=== PATIENT | female | born 1995 | race Caucasian/White ===

== ENCOUNTER 2016-04-24 22:04 | Inpatient (IN) | payer MEDICAID ==
[~2016-04-24] VITALS: Ht 157.5 cm; Wt 63.2 kg
[2016-04-24] MEDS ORDERED: FAMOTIDINE 20 MG/2 ML IVP ONE (22:30)
[2016-04-24] MEDS ORDERED: SODIUM CHLORIDE 0.9% 1,000ML IVBOLUS ONE (22:30)
[2016-04-24] MEDS ORDERED: SODIUM CHLORIDE FLUSH 10ML SYR IVF ONE (22:30)
[2016-04-24] MEDS ORDERED: ONDANSETRON 2MG/ML, 2ML IVPush ONE (22:30)
[2016-04-24] MEDS ORDERED: ONDANSETRON 2MG/ML, 2ML ONE (22:38)
[2016-04-24] MEDS ORDERED: FAMOTIDINE 20 MG/2 ML ONE (22:38)
[2016-04-24] MEDS ORDERED: PROM12.553 RC (23:06)
[2016-04-24] MEDS ORDERED: ONDA4TAB13 SL (23:06)
[2016-04-25] MEDS ORDERED: ONDANSETRON 2MG/ML, 2ML ONE (00:14)
[2016-04-25] MEDS ORDERED: ONDANSETRON 2MG/ML, 2ML IVPush ONE (00:30)
[2016-04-25] MEDS ORDERED: SODIUM CHLORIDE 0.9% 1,000ML IVBOLUS ONE (00:30)
[2016-04-25] MEDS ORDERED: PROMETHAZINE 25 MG/ML, 1ML ONE (01:40)
[2016-04-25] MEDS ORDERED: PROMETHAZINE 25 MG/ML, 1ML IM ONE (02:00)
[2016-04-25 03:57] LABS: HEMOGLOBIN 11.6 g/dL (11.7-16.4)
[2016-04-25 04:15] LABS: BLOOD UREA NITROGEN 9 mg/dL (7-18)
[2016-04-25 04:22] LABS: ASPARTATE AMINO TRANSFERASE 9 U/L (15-37)
[2016-04-25 08:30] VITALS: BP 101/57
[2016-04-25] MEDS ORDERED: PROMETHAZINE 25 MG/ML, 1ML IM PRN (08:30)
[2016-04-25] MEDS ORDERED: ONDANSETRON 2MG/ML, 2ML IVP PRN (08:30)
[2016-04-25] MEDS ORDERED: LABETALOL 5MG/ML, 20ML IV PRN (08:30)
[2016-04-25] MEDS ORDERED: ACETAMINOPHEN 120 MG SUPP PR PRN (08:30)
[2016-04-25] MEDS ORDERED: BISACODYL 10 MG SUPP PR PRN (08:30)
[2016-04-25 08:53] LABS: DAU SCREEN DISCLAIMER
[2016-04-25 09:06] VITALS: BP 101/57
[2016-04-25] MEDS: POTASSIUM CHLORIDE 20 MEQ in LACTATED RINGERS 1,000 ML IV SCH ×2 (09:35→19:41)
[2016-04-25] MEDS: FAMOTIDINE 20 MG/2 ML IV SCH ×2 (09:36→21:25)
[2016-04-25] MEDS: ENOXAPARIN 40 MG/0.4 ML SQ SCH (09:36)
[2016-04-25 20:05] VITALS: BP 98/68
[2016-04-26] MEDS: POTASSIUM CHLORIDE 20 MEQ in LACTATED RINGERS 1,000 ML IV SCH (05:02)
[2016-04-26 06:08] LABS: BLOOD UREA NITROGEN 9 mg/dL (7-18)
[2016-04-26 06:10] LABS: HEMOGLOBIN 11.5 g/dL (11.7-16.4)
[2016-04-26 06:12] LABS: ASPARTATE AMINO TRANSFERASE 12 U/L (15-37)
[2016-04-26 08:16] VITALS: BP 107/70
[2016-04-26] MEDS: ENOXAPARIN 40 MG/0.4 ML SQ SCH (08:29)
[2016-04-26] MEDS: FAMOTIDINE 20 MG/2 ML IV SCH (08:29)
== END 2016-04-26 14:16 | disposition home or self-care (01) | DRG 103 ==
LOC: ED 23:04 → EDIP 04-25 06:07 → 3WST 04-25 07:45
PROC: 0T9B70Z Drainage of Bladder with Drainage Device, Via Natural or Artificial Opening (ICD-10-PCS; principal; 2016-04-25)
DX: G43.A0 Cyclical vomiting, in migraine, not intractable (principal); J02.9 Acute pharyngitis, unspecified; E87.8 Other disorders of electrolyte and fluid balance, not elsewhere classified; E83.51 Hypocalcemia; E86.0 Dehydration
CPT/HCPCS: 36415; 74000; 80053; 80307; 81001; 83690; 83735; 84100; 84703; 85025; 87086; 93005; 96372; 96374; 96375; 96376; J1650; J2405; J2550; J3480; J7030; J7120; S0028